=== PATIENT | male | born 1985 | race Two or more races ===

== ENCOUNTER 2016-12-04 13:43 | Emergency (ER) | payer MEDICAID ==
[~2016-12-04] VITALS: Ht 167.6 cm; Wt 77.1 kg
[2016-12-04 14:01] VITALS: BP 132/92
[2016-12-04] MEDS ORDERED: NKM (14:10)
--- NOTE | 2016-12-04 14:25 | Emergency Room Report ---
History of Present Illness General Chief Complaint: Multiple Trauma/Fall Source: Patient Present Illness HPI 31-year-old male presents emergency department complaining of 9/10 in severity low back pain that is midline times one day status post fall from ladder afternoon. Patient states he landed on his feet he did not hit his head he did not lose consciousness. Patient denies pain in the heels, knees or hips. he denies previous injury to the back he states he has not taken any medication for his symptoms. Denies numbness tingling or loss of sensation or gross motor movements of the extremities, incontinence of bowel or bladder. Denies CP, Palpitations, LOC, AMS, dizziness, Changes in Vision, Sensation, paresthesias, or a sudden severe headache. Allergies: Coded Allergies: No Known Allergies (Unverified , 12/04/16) Patient History Past Medical History: see triage record Past Surgical History: none Pertinent Family History: none Immunizations: UTD Reviewed Nursing Documentation: PMH: Agreed, PSxH: Agreed Nursing Documentation-PMH Past Medical History: No Stated History Review of Systems All Other Systems: negative except mentioned in HPI Physical Exam Vital Signs Date Time Temp Pulse Resp B/P Pulse Ox O2 Delivery O2 Flow Rate FiO2 12/04/16 14:01 98.2 88 16 132/92 99 Room Air Sp02 EP Interpretation: reviewed, normal General Appearance: no apparent distress, alert, GCS 15, non-toxic Head: normocephalic, atraumatic Eyes: bilateral eye PERRL, bilateral eye normal inspection ENT: hearing grossly normal, normal pharynx, no angioedema, normal voice Neck: full range of motion, supple/symm/no masses Respiratory: chest non-tender, lungs clear, normal breath sounds, speaking full sentences Cardiovascular #1: regular rate, rhythm, no edema Gastrointestinal: normal bowel sounds, non tender, soft, no guarding, no rebound Rectal: deferred Genitourinary: normal inspection, no CVA tenderness Musculoskeletal: back normal, gait/station normal, normal range of motion, tender - midline Lumbar TTP, no obvious deformity, no heel ttp, Neurologic: alert, oriented x3, responsive, motor strength/tone normal, sensory intact, cerebellar normal, normal gait, speech normal, other - no evidence of incontinence Psychiatric: judgement/insight normal, memory normal, mood/affect normal Skin: normal color, no rash, warm/dry, well hydrated Medical Decision Making PA Attestation Dr. Nix is my supervising Physician whom patient management has been discussed with. Diagnostic Impression: Primary Impression: Compressed vertebrae ER Course 31-year-old male presents emergency department complaining of 9/10 in severity low back pain that is midline times one day status post fall from ladder afternoon. Patient states he landed on his feet he did not hit his head he did not lose consciousness. Patient denies pain in the heels, knees or hips. he denies previous injury to the back he states he has not taken any medication for his symptoms. Denies numbness tingling or loss of sensation or gross motor movements of the extremities, incontinence of bowel or bladder. Denies CP, Palpitations, LOC, AMS, dizziness, Changes in Vision, Sensation, paresthesias, or a sudden severe headache. Ddx considered but are not limited to Fracture, dislocation, contusion, Sprain/ Strain/Spasm, Epidural abscess, Neoplastic mets. Vital signs: are WNL, pt. is afebrile H&PE are most consistent with possible vertebral fracture, fall from height greater than 8 feet. ORDERS: - CT L-Spine no Contrast : compression fracture of T12/L1 per official radiology report. ED INTERVENTIONS: - [place] PO DISCHARGE: At this time pt. is stable for d/c to home. Will provide printed patient care instructions, and any necessary prescriptions. Care plan and follow up instructions have been discussed with the patient prior to discharge. Last Vital Signs Date Time Temp Pulse Resp B/P Pulse Ox O2 Delivery O2 Flow Rate FiO2 12/04/16 14:01 98.2 88 16 132/92 99 Room Air Disposition: HOME, SELF-CARE Condition: Stable Scripts Ibuprofen* (MOTRIN*) 600 Mg Tablet 600 MG ORAL THREE TIMES A DAY, #30 TAB 0 Refills Prov: Jacey Jay P.A. 12/04/16 Hydrocodone Bit/Acetaminophen 5-325* (NORCO 5-325 TABLET*) 1 Each Tablet 1 TAB ORAL Q6HR Y for For Pain, #20 TAB Prov: Jacey Jay P.A. 12/04/16 Patient Instructions: Spinal Compression Fracture Additional Instructions: Take medications as directed. Follow up with PCP in 3-5 days Return sooner to ED if new symptoms occur, or current symptoms become worse. Do not drink alcohol, drive, or operate heavy machinery while taking [place] as this may cause drowsiness. - Please note that this Emergency Department Report was dictated using [email or web address] technology software, occasionally this can lead to erroneous entry secondary to interpretation by the dictation equipment. Jacey Jay December 04, 2016 14:25
[2016-12-04] MEDS ORDERED: Norco 7.5mg/325mg tab ORAL ONE (14:30)
[2016-12-04] MEDS ORDERED: IBUPROFEN600 MG ORAL (15:40)
[2016-12-04] MEDS ORDERED: NORCO 5-325 TA1 EAC1 ORAL (15:40)
[2016-12-04 16:09] VITALS: BP 130/77
--- NOTE | 2016-12-05 10:54 | Diagnostic Imaging Report ---
Indication: Back pain Technique: Continuous helical transaxial imaging of the lumbar spine was obtained from the lung bases to the pubic symphysis. No IV contrast was administered. Coronal 2-D reformats were also obtained. Study obtained in a Siemens sensation [address] Total Dose length Product (DLP): [address] Dose Index Volume (CTDIvol): 14 mGy Comparison: None Findings: There is a mild compression fracture deformity of the major aspect of the superior endplates of L2 and L3, mild in degree, potentially acute. Please correlate clinically. If acute these are be stable fractures. There is no involvement of the posterior third of the vertebra or pedicles or remainder of the posterior elements. There is no malalignment. Transitional lumbar sacral junction noted. Tiny nonobstructive stone incidentally noted within the left kidney. There is no hydronephrosis seen on this exam. The bladder is distended. Facet arthropathy is noted in the lower lumbar spine particularly at L5-S1. This characterized by periarticular irregularity/osteophytes and some joint space narrowing. Impression: Age-indeterminate mild compression fracture deformities of the L2 and L3 superior endplates. Lower lumbar facet arthropathy Incidental nonobstructive stones within the left kidney. The CT scanner at [facility] is accredited by the [employer] and the scans are performed using protocols designed to limit radiation exposure to as low as reasonably achievable to attain images of sufficient resolution adequate for diagnostic evaluation.
== END 2016-12-04 16:15 | disposition home or self-care (01) ==
LOC: EMR 14:41
DX: S32.020A Wedge compression fracture of second lumbar vertebra, initial encounter for closed fracture (principal); S32.030A Wedge compression fracture of third lumbar vertebra, initial encounter for closed fracture; W11.XXXA Fall on and from ladder, initial encounter; Y93.9 Activity, unspecified; Y92.9 Unspecified place or not applicable
CPT/HCPCS: 72131; 99284